=== PATIENT | female | born 1980 | race Caucasian/White ===

== ENCOUNTER → 2016-03-14 | Outpatient (CLI) | payer BC ==
[~2016-03-14] MED LIST: CYM/30 PO; IBUP-1428 PO; LEVO100T7 PO; OXYC-57 PO; PREN1TAB29 PO; RIZA10TA18 SL
[2016-03-14 17:47] LABS: GTGD 50 Grams
[2016-03-16 13:58] LABS: AFP CONCENTRATION 40.1 NG/ML; AFP MULTIPLE OF MEDIAN 1.34; AFPTS GESTATIONAL AGE 18.1 WEEKS; AFPTS INSULIN DEP DIABETIC? NO; AFPTS MATERNAL WT 296 LBS; ALPHA-FETOPROTEIN RACE CAUCASIAN=W; EDD DETERMINED BY ULTRASOUND; ESTRIOL MULTIPLE OF MEDIAN 1.44; HISTORY OF NTD NO; INHIBIN A 125 PG/ML; INHIBIN A MOM 0.97; REPEAT SAMPLE? NO; hCG MULTIPLE OF MEDIAN 1.12
== END | disposition home or self-care (01) ==
LOC: C.LAB1850 15:27
PROVIDERS: ATTEND Obstetrics & Gynecology
DX: Z34.02 Encounter for supervision of normal first pregnancy, second trimester (principal); E03.9 Hypothyroidism, unspecified

== ENCOUNTER → 2016-05-22 | Outpatient (CLI) | payer BC ==
[2016-05-22 12:12] LABS: URINE APPEARANCE CLOUDY (CLEAR); URINE BILIRUBIN NEG (NEG); URINE COLOR DK YELLOW; URINE EPITHELIAL CELL AUTO >30 /lpf (0-5); URINE NITRITE NEG (NEG); URINE PH 6.5 (4.5-7.5); URINE SPECIFIC GRAVITY 1.021 (1.000-1.030); UROBILINOGEN NEG (NEG)
[2016-05-22 12:17] LABS: MANUAL MICROSCOPIC REQUIRED? NO; REVIEW REQ? NO
== END | disposition home or self-care (01) ==
LOC: C.LABSPEC 11:36
PROVIDERS: ATTEND Obstetrics & Gynecology
DX: Z34.03 Encounter for supervision of normal first pregnancy, third trimester (principal)

== ENCOUNTER → 2016-06-12 | Outpatient (CLI) | payer BC ==
[~2016-06-12] MED LIST changes: +BCPILLS PO; +DICY20TA35 PO; +DULO1CAP39 PO; +NITR-5 PO; +RIZA5TAB10 PO; +SIMV20TA2 PO
[2016-06-12 17:53] LABS: URINE APPEARANCE CLEAR (CLEAR); URINE BILIRUBIN NEG (NEG); URINE COLOR DK YELLOW; URINE EPITHELIAL CELL AUTO >30 /lpf (0-5); URINE NITRITE POS (NEG); URINE PH 6.5 (4.5-7.5); URINE SPECIFIC GRAVITY 1.014 (1.000-1.030); UROBILINOGEN NEG (NEG)
[2016-06-12 17:55] LABS: MANUAL MICROSCOPIC REQUIRED? NO; REVIEW REQ? NO
== END | disposition home or self-care (01) ==
LOC: C.LAB1850 17:15
PROVIDERS: ATTEND Obstetrics & Gynecology
DX: E03.9 Hypothyroidism, unspecified (principal); R39.9 Unspecified symptoms and signs involving the genitourinary system

== ENCOUNTER 2016-07-17 16:59 | Observation (INO) | payer BC ==
[~2016-07-17] VITALS: Ht 172.7 cm; Wt 142.0 kg
[~2016-07-17 16:59] MED LIST changes: -BCPILLS PO; -DICY20TA35 PO; -DULO1CAP39 PO; -LEVO100T7 PO; -NITR-5 PO; -RIZA5TAB10 PO; -SIMV20TA2 PO
[2016-07-17] MEDS ORDERED: LEVO100T7 PO (17:22)
[2016-07-17 17:23] VITALS: Ht 172.7 cm; Wt 142.0 kg
[2016-07-17 17:32] LABS: BASO % 0.2 %; BASO ABS # 0.02 K/uL (0-0.2); COMPLETE YES; EOS % 1.3 %; HEMATOCRIT 39.3 % (37-47); IG% 0.4 %; LYMPH % 21.7 %; LYMPH ABS # 2.09 K/uL (1.2-3.4); MEAN CELL VOLUME 95.9 fL (80-100); MEAN CORPUSCULAR HEMOGLOBIN 31.7 pg (25-34); MEAN CORPUSCULAR HGB CONC 33.1 g/dl (32-36); MEAN PLATELET VOLUME 10.8 fL (7.4-10.4); MONO % 8.1 %; NEUT % 68.3 %; PLATELET COUNT 212 K/uL (130-400); WHITE BLOOD COUNT 9.63 K/uL (4.8-10.8)
[2016-07-17 17:50] LABS: CREATININE 0.55 mg/dl (0.60-1.20); POTASSIUM 4.1 mmol/L (3.5-5.1)
[2016-07-17 17:51] LABS: ALB/GLOB RATIO 0.6 (0.9-2)
[2016-07-17] MEDS ORDERED: IV FLUIDS COMPLETED PRN (20:15)
[2016-07-18 05:51] LABS: HEMATOCRIT 37.8 % (37-47); MEAN CELL VOLUME 96.9 fL (80-100); MEAN CORPUSCULAR HEMOGLOBIN 32.3 pg (25-34); MEAN CORPUSCULAR HGB CONC 33.3 g/dl (32-36); MEAN PLATELET VOLUME 10.8 fL (7.4-10.4); PLATELET COUNT 174 K/uL (130-400); WHITE BLOOD COUNT 9.55 K/uL (4.8-10.8)
[2016-07-18 06:25] LABS: BUN/CREATININE RATIO 11.6 (10-20); CALCIUM 9.3 mg/dl (8.5-10.1); CREATININE 0.53 mg/dl (0.60-1.20); POTASSIUM 3.9 mmol/L (3.5-5.1)
[2016-07-18 06:28] LABS: ALB/GLOB RATIO 0.6 (0.9-2)
[2016-07-18 18:17] LABS: PATIENT HEIGHT 172.7 cm
[2016-07-18 18:45] LABS: URINE TOTAL PROTEIN 20.3 mg/dl (0-11.9)
[2016-07-18 18:51] LABS: CREATININE 0.53 mg/dl (0.6-1.2); URINE TOTAL PROTEIN CALC 426.3 mg/24 hr (0-149.1)
--- NOTE | 2016-07-18 19:14 | Discharge Instructions ---
Discharge Instructions Date of Service July 18, 2016. Admission Reason for Admission: Bp Check Discharge Discharge Diagnosis / Problem: pre-eclampsia Discharge Goals Goal(s): Continuing OB care Activity Recommendations Activity Limitations: per Instructions/Follow-up section . Instructions / Follow-Up Instructions / Follow-Up SPECIAL CARE INSTRUCTIONS: Call Doctor if: * Regular contractions every 5 minutes or greater than contractions in one hour. * Bleeding * Water breaks or is leaking * Decreased movement * Fever >100.4 degrees F * Pain not relieved by routine measures or pain medication ordered. Call if severe headache, vision problems or upper abdomen pain FOLLOW UP VISIT: Call the office tomorrow for a BP check Follow-up Visit with: When: Current Hospital Diet Patient's current hospital diet: Clear Liquid Diet Discharge Diet Recommended Diet: Regular Diet Pending Studies Studies pending at discharge: no Medical Emergencies . Who to Call and When: Medical Emergencies: If at any time you feel your situation is an emergency, please call 911 immediately. . Non-Emergent Contact Non-Emergency issues call your: Cash Controller . . "Provider Documentation" section prepared by Rohit Chowdary. . VTE Core Measure Inpt VTE Proph given/why not?: Treatment not indicated
--- NOTE | 2016-07-21 08:38 | DISCHARGE SUMMARY ---
ADMISSION DIAGNOSES: 1. Intrauterine at 36 and 0/7 weeks. 2. Elevated blood pressures with concern for preeclampsia. DISCHARGE DIAGNOSES: 1. Same. 2. Preeclampsia without severe features. HISTORY OF PRESENT ILLNESS: The patient is a 35-year-old white female 1, para 0 with an intrauterine at 36 weeks who presents from the office with elevated blood pressures of 140s/90s. The patient presented to her normal 36-week visit today noting good movement, no leaking of fluid, vaginal bleeding or contractions. The is complicated by diet-controlled diabetes. The patient had an ultrasound on the day of admission revealing an AC in the 35th percentile. She denies headaches, vision changes, nausea, vomiting, right upper quadrant pain. The patient notes lower extremity swelling, but not significantly worse. She is morbidly obese. She notes she has never had blood pressure issues in the past. Blood pressures earlier in the were 120-130/70-80. PAST SHREDDING SPECIALIST HISTORY: As noted above. She notes no abnormal Pap smears or STDs. ALLERGIES: No known drug allergies. MEDICATIONS: Amoxicillin, vitamin B12, Synthroid, Duloxetine, fluticasone, multivitamin and Aurelia. PAST MEDICAL HISTORY: Significant for gestational diabetes, morbid obesity, migraines, depression and hypothyroidism. PAST SURGICAL HISTORY: Back surgery and wisdom teeth removal. SOCIAL HISTORY: The patient denies tobacco, alcohol or drug use. FAMILY HISTORY: Noncontributory. PHYSICAL EXAMINATION: VITAL SIGNS: On admission the patient's initial blood pressure was 172/102. She is dipping trace protein. ABDOMEN: Soft, obese, gravid and nontender. EXTREMITIES: Show +1 pitting edema to the ankles, no clonus and it is difficult to elicit DTRs. CERVIX: Exam is deferred. Tocodynamometer shows none. External monitor shows to be in the 120s with moderate variability, accels to 140s, no decels. ASSESSMENT: This is an intrauterine at 36 weeks with elevated blood pressures and concern for preeclampsia. HOSPITAL COURSE: The patient was admitted. Labs were drawn and they were all normal. She continues to be asymptomatic. Her blood pressures are very labile with values in the 140s/70s to 170s/90s. Had one rare super elevated blood pressure of 200/103. Currently, her diagnosis is gestational hypertension. She does not have evidence either by symptoms or labs of preeclampsia. Her blood sugars have been reasonable. She shows no signs or symptoms of labor, the baby is category 1. The patient was admitted and observed overnight and a 24-hour urine was obtained. Her pressures improved overnight to 130s-140s/80s-90s. She continued to remain asymptomatic. Her repeat set of labs were drawn which were normal. Her 24-hour urine returned revealing 426 mg of protein. Her blood pressures remained significantly better over observation during the day on hospital day #2. She was discharged home with rest. She was scheduled for induction for preeclampsia without severe features on Sunday the . She will be returning to the office on the for another blood pressure check. The signs and symptoms for preeclampsia were clearly discussed with the patient and she expressed understanding.
== END 2016-07-18 19:25 | disposition home or self-care (01) ==
LOC: C.LD 16:59 → C.OPB 16:59 → C.LD 19:49
PROVIDERS: ADMIT Obstetrics & Gynecology; ATTEND Obstetrics & Gynecology
DX: O13.3 Gestational [pregnancy-induced] hypertension without significant proteinuria, third trimester (principal); O14.03 Mild to moderate pre-eclampsia, third trimester; O24.410 Gestational diabetes mellitus in pregnancy, diet controlled; Z87.440 Personal history of urinary (tract) infections; Z83.3 Family history of diabetes mellitus; Z80.6 Family history of leukemia; E66.01 Morbid (severe) obesity due to excess calories

== ENCOUNTER → 2016-07-17 | Outpatient (CLI) | payer BC | END | disposition home or self-care (01) | LOC: C.LABSPEC 17:38 | PROVIDERS: ATTEND Obstetrics & Gynecology | DX: O24.410 Gestational diabetes mellitus in pregnancy, diet controlled (principal) ==

== ENCOUNTER 2016-07-23 19:05 | Inpatient (IN) | payer BC ==
[~2016-07-23] VITALS: Ht 172.7 cm; Wt 141.8 kg
[~2016-07-23 19:05] MED LIST changes: -IBUP-1428 PO; +LEVO100T7 PO; -OXYC-57 PO; -RIZA10TA18 SL
[2016-07-23] MEDS ORDERED: LACTATED RINGER'S 1000ML 1,000 ML IV PRN (20:01)
[2016-07-23 20:25] LABS: BASO % 0.2 %; BASO ABS # 0.02 K/uL (0-0.2); EOS % 1.1 %; HEMATOCRIT 38.3 % (37-47); IG% 0.6 %; LYMPH % 25.1 %; LYMPH ABS # 2.55 K/uL (1.2-3.4); MEAN CELL VOLUME 95.3 fL (80-100); MEAN CORPUSCULAR HEMOGLOBIN 32.3 pg (25-34); MEAN PLATELET VOLUME 10.8 fL (7.4-10.4); MONO % 5.9 %; NEUT % 67.1 %; PLATELET COUNT 188 K/uL (130-400); RED BLOOD COUNT 4.02 M/uL (4.2-5.4); WHITE BLOOD COUNT 10.14 K/uL (4.8-10.8)
[2016-07-23 20:26] LABS: COMPLETE YES; MEAN CORPUSCULAR HGB CONC 33.9 g/dl (32-36)
[2016-07-23 20:51] LABS: ALT/SGPT 18 U/L (12-78); AST/SGOT 21 U/L (15-37); CREATININE 0.59 mg/dl (0.60-1.20); URIC ACID 3.7 mg/dl (2.6-7.2)
[2016-07-23 21:02] LABS: URINE PROTIEN/CREAT RATIO 0.4 (0-0.2); URINE TOTAL PROTEIN 35.6 mg/dl (0-11.9)
[2016-07-23 21:45] VITALS: Ht 172.7 cm; Wt 141.8 kg
[2016-07-24] MEDS ORDERED: LACTATED RINGER'S 1000ML 500 ML IV PRN ×2 (09:07→12:11)
[2016-07-24] MEDS ORDERED: OXYTOCIN 30 UNITS/500ML NSS IV PRN ×2 (09:15→18:00)
[2016-07-24] MEDS: LACTATED RINGER'S 1000ML 1,000 ML IV SCH ×2 (09:31→11:49)
[2016-07-24] MEDS ORDERED: BUPIVACAINE 0.25% 30 ML VIAL ONE (11:05)
[2016-07-24] MEDS ORDERED: FENTANYL 2MCG/ML ROPIV 1.25MG/ML 100ML BAG EPI ONE (11:06)
[2016-07-24] MEDS ORDERED: EpHEDrine SULFATE INJ 50 MG/ML AMP ONE (11:06)
[2016-07-24] MEDS ORDERED: FENTANYL CITRATE INJ 50 MCG/1 ML 2 ML VIAL ONE (11:06)
[2016-07-24] MEDS ORDERED: NALOXONE HCL INJ 1 MG in SODIUM CHLORIDE 0.9% 1000ML 1,000 ML IV PRN (12:11)
[2016-07-24] MEDS ORDERED: NALBUPHINE HCL INJ 10 MG/ML AMP IV PRN (12:15)
[2016-07-24] MEDS ORDERED: FENTANYL 2MCG/ML ROPIV 1.25MG/ML 100ML BAG EPI PRN (12:15)
[2016-07-24] MEDS ORDERED: NALOXONE HCL INJ 0.4 MG/1 ML VIAL/CARP IV PRN (12:15)
[2016-07-24] MEDS ORDERED: DiphenhydrAMINE HCL 50 MG/ML VIAL IV PRN (12:15)
[2016-07-24] MEDS ORDERED: EpHEDrine SULFATE INJ 50 MG/ML AMP IV PRN (12:15)
[2016-07-24] MEDS ORDERED: ACETAMINOPHEN/CODEINE 300/30MG TAB PO PRN (18:00)
[2016-07-24] MEDS ORDERED: LANOLIN OINT EXT PRN ×2 (18:00)
[2016-07-24] MEDS ORDERED: BENZOCAINE 20% AER SPR 82.5 GM CAN EXT PRN (18:00)
[2016-07-24] MEDS ORDERED: ACETAMINOPHEN 325 MG TAB PO PRN (18:00)
[2016-07-24] MEDS ORDERED: HYDROCORTISONE ACETATE 25 MG SUPP PR PRN (18:00)
[2016-07-24] MEDS ORDERED: SUPERCREAM 0.870 % 15GM JAR EXT PRN (18:00)
[2016-07-24] MEDS ORDERED: DIPHTHERIA/TETANUS/PERTUSSIS 0.5 ML SYR/VIAL IM. ONE (18:00)
--- NOTE | 2016-07-24 18:12 | DELIVERY SUMMARY ---
DATE OF OPERATION: 07/24/2016 The patient dilated to complete and pushed to deliver a viable male , Apgars 8 and 9 via over second degree perineal laceration. Shoulders and body were delivered with ease. The was vigorous and crying at . At approximately 30 seconds of life, cord was clamped and infant to maternal abdomen. Cord then doubly clamped and cut. Placenta delivered spontaneously and intact 3-vessel cord. Hemostasis achieved with dilute Pitocin and uterine massage. Laceration repaired in the usual fashion with 3-0 Vicryl. Cervix and sulci intact. EBL 300 mL. Mother and baby stable in recovery. I attest to the content of the Intraoperative Record and any orders documented therein. Any exceptio ns are noted below.
[2016-07-24] MEDS ORDERED: MAGNESIUM SULFATE 4GM / WTR 100ML IV SCH (18:20)
[2016-07-24] MEDS ORDERED: MAGNESIUM SULFATE / WTR 1,000 ML IV ONE (18:30)
[2016-07-24] MEDS: IBUPROFEN 600 MG TAB PO PRN ×2 (18:30→22:46)
[2016-07-24] MEDS: OXYTOCIN INJ 20 UNITS in LACTATED RINGER'S 1000ML 1,000 ML IV SCH (19:08)
[2016-07-24] MEDS: DOCUSATE SODIUM 100 MG CAP PO SCH (21:05)
[2016-07-24] MEDS: DULOXETINE (CYMBALTA) 30 MG CAP PO SCH (22:07)
[2016-07-24] MEDS: ACETAMINOPHEN/CODEINE 300/30MG TAB PO PRN (22:45)
[2016-07-25] MEDS: IBUPROFEN 600 MG TAB PO PRN ×3 (02:25→21:54)
[2016-07-25] MEDS: ACETAMINOPHEN/CODEINE 300/30MG TAB PO PRN (02:26)
[2016-07-25] MEDS: OXYTOCIN INJ 20 UNITS in LACTATED RINGER'S 1000ML 1,000 ML IV SCH (06:10)
[2016-07-25 07:36] LABS: BASO % 0.1 %; BASO ABS # 0.02 K/uL (0-0.2); COMPLETE YES; HEMATOCRIT 38.1 % (37-47); IG% 0.3 %; LYMPH ABS # 2.17 K/uL (1.2-3.4); MEAN CELL VOLUME 96.2 fL (80-100); MEAN CORPUSCULAR HEMOGLOBIN 31.6 pg (25-34); MEAN CORPUSCULAR HGB CONC 32.8 g/dl (32-36); MEAN PLATELET VOLUME 10.6 fL (7.4-10.4); MONO % 6.9 %; NEUT % 75.7 %; PLATELET COUNT 144 K/uL (130-400); RED BLOOD COUNT 3.96 M/uL (4.2-5.4); WHITE BLOOD COUNT 13.59 K/uL (4.8-10.8)
[2016-07-25] MEDS: DOCUSATE SODIUM 100 MG CAP PO SCH ×2 (07:43→19:48)
[2016-07-25] MEDS: LEVOTHYROXINE 100 MCG TAB PO SCH (07:43)
[2016-07-25] MEDS: FEXOFENADINE HCL 180 MG TAB PO SCH (07:43)
[2016-07-25 08:10] LABS: BUN/CREATININE RATIO 16.6 (10-20); CREATININE 0.58 mg/dl (0.60-1.20); POTASSIUM 3.9 mmol/L (3.5-5.1)
[2016-07-25 08:13] LABS: ALB/GLOB RATIO 0.5 (0.9-2)
[2016-07-25 08:29] LABS: CALCIUM 8.6 mg/dl (8.5-10.1)
--- NOTE | 2016-07-25 08:55 | Progress Note ---
Subjective July 25, 2016. Subjective lab review Objective Laboratory Results Last 24 Hours Test 07/24/16 13:10 07/25/16 07:15 Bedside Glucose 82 mg/dl White Blood Count 13.59 K/uL Red Blood Count 3.96 M/uL Hemoglobin 12.5 g/dL Hematocrit 38.1 % Mean Corpuscular Volume 96.2 fL Mean Corpuscular Hemoglobin 31.6 pg Mean Corpuscular Hemoglobin Concent 32.8 g/dl Platelet Count 144 K/uL Mean Platelet Volume 10.6 fL Neutrophils (%) (Auto) 75.7 % Lymphocytes (%) (Auto) 16.0 % Monocytes (%) (Auto) 6.9 % Eosinophils (%) (Auto) 1.0 % Basophils (%) (Auto) 0.1 % Neutrophils # (Auto) 10.28 K/uL Lymphocytes # (Auto) 2.17 K/uL Monocytes # (Auto) 0.94 K/uL Eosinophils # (Auto) 0.14 K/uL Basophils # (Auto) 0.02 K/uL RDW Standard Deviation 49.9 fL RDW Coefficient of Variation 14.1 % Immature Granulocyte % (Auto) 0.3 % Immature Granulocyte # (Auto) 0.04 K/uL Sodium Level 140 mmol/L Potassium Level 3.9 mmol/L Chloride Level 108 mmol/L Carbon Dioxide Level 26 mmol/L Anion Gap 6.0 mmol/L Blood Urea Nitrogen 10 mg/dl Creatinine 0.58 mg/dl Est Creatinine Clear Calc Drug Dose 207.0 ml/min Estimated GFR () 140.4 Estimated GFR (Non- 121.1 BUN/Creatinine Ratio 16.6 Random Glucose 101 mg/dl Calcium Level 8.6 mg/dl Total Bilirubin 0.2 mg/dl Aspartate Amino Transf (AST/SGOT) 22 U/L Alanine Aminotransferase (ALT/SGPT) 16 U/L Alkaline Phosphatase 121 U/L Total Protein 5.6 gm/dl Albumin 1.9 gm/dl Globulin 3.7 gm/dl Albumin/Globulin Ratio 0.5 Assessment and Plan Post- Day#: 1 Continue Routine Care: - [facility] labs this AM are stable - BP stable - will d/c Mg (15 hours given) - xfer to
[2016-07-25 11:15] VITALS: BP 143/84; PULSE 80; TEMP 36.5; O2SAT 100
[2016-07-25 16:00] VITALS: BP 148/87; PULSE 95; TEMP 36.9; O2SAT 97
[2016-07-25 19:40] VITALS: BP 116/77; PULSE 105; TEMP 36.8; O2SAT 97
[2016-07-25] MEDS: DULOXETINE (CYMBALTA) 30 MG CAP PO SCH (21:55)
[2016-07-25 23:35] VITALS: BP_SYST 140; BP_SYST 143; BP_DIAS 79; BP_DIAS 89; PULSE 91; TEMP 36.8; O2SAT 97
--- NOTE | 2016-07-26 06:52 | Discharge Instructions ---
Discharge Instructions Date of Service July 25, 2016. Admission Reason for Admission: Mild Preeclampsia Discharge Discharge Diagnosis / Problem: s/p vaginal delivery Discharge Goals Goal(s): Routine recovery after delivery Medications Continue Dispensed Medications: supercream, dermaplast, tucks, lansinoh Activity Recommendations Activity Limitations: as noted below . Instructions / Follow-Up Instructions / Follow-Up ACTIVITY RECOMMENDATIONS: * Gradual return to full activity over the next 2-3 weeks. * No lifting - nothing heavier than baby over the next 2-3 weeks. * Do not engage in vigorous exercise, sexual activity or sports until cleared by your physician. * Do not drive or operate any motorized equipment until cleared by your physician. * You may shower/bathe daily. MEDICATIONS: For discomfort or pain, you may use Acetaminophen (Tylenol), Ibuprofen (Advil), or Naproxen (Aleve) following the package directions. For constipation you may use Colace following the package directions. BREAST CARE: If you are not breast feeding: * Wear a supportive bra 24 hours a day for one to two weeks. * Avoid stimulating your breasts and nipples as much as possible during the first few weeks after delivery. * When taking a shower, have the warm water hit your back, not breasts. * When your breasts feel full, apply ice packs. Usually three to four times a day helps ease the discomfort. * Take a mild pain medication (Tylenol / Motrin) when you are uncomfortable. If breast feeding: * Use breast milk to lubricate nipples. Lansinoh cream may be used for sore nipples. You do not need to remove cream prior to breast feeding. If using a different brand of cream, check the label for directions regarding removal of cream prior to nursing. * Wear a supportive bra. * If having problems with breasts or breast feeding, call a admissions consultant or your health care provider. EPISIOTOMY CARE: After delivery, if you have an episiotomy (stitches), the following steps will ease discomfort and aid healing. * For the first 24 hours after delivery, place ice packs next to your episiotomy to help reduce swelling. * After the first 24 hour-period, sitz baths, either portable or in the tub, are suggested. A shower with a shower arm sprayed over the episiotomy may be comforting. * Marlen care should be done after each voiding and bowel movement. Squirt warm water from a plastic bottle over the perineum (region of the body between the anus and urinary opening) and pat dry. * Use Dermoplast to ease discomfort. Shake container. Tebbetts directly over the episiotomy. Place a Tucks on a clean sanitary pad next to your episiotomy. SPECIAL CARE INSTRUCTIONS: When you are discharged from the hospital, it is important for you to follow the instructions listed below: * During the first week at home, you should be able to care for yourself and your baby. In addition, the usual light household activities are encouraged. * Limit your activities to the way you feel. Do not try to clean the house or move furniture. Be sensible. * If you actively engage in sports and have done so up until the time of your delivery, you may resume these activities as soon as you feel able. This may take up to one month or even longer. Use good judgment. * Continue to take your vitamins for at least six weeks after the of your baby. * Your diet need not be limited unless you were on a special diet before your delivery. Breast-feeding mothers need around 2500 calories per day and at least 64-80 ounces of fluid per day (8 to 10 glasses). * You should eat foods from the four major food groups. Crash diets or fad diets are to be avoided. Eating lean meats, fresh fruits and vegetables, low-fat dairy products, high fiber foods and a regular exercise program, will help you get back to your pre- weight without putting your health at risk. * Constipation is sometimes a problem after delivery. Take a mild laxative as needed. If breast feeding, Milk of Magnesia is acceptable to use. You may use a suppository or Fleets enema if no episiotomy. * A daily shower or tub bath is suggested. Be sure to thoroughly and gently dry the perineum. * A bloody vaginal discharge will usually continue until around four weeks post . A small amount of bleeding may continue for as long as six weeks. Vaginal discharge changes from the bright red bleeding after delivery to pink then brownish and finally yellowish-pink before becoming white and disappearing. * Bleeding may increase with activity. Your first period may come in 4-8 weeks. If you are breast feeding, your period may be delayed even longer. * [place] (sex) can begin whenever both you and your partner feel comfortable and do not have any form of genital infection. It is recommended that you wait at least six weeks for internal and external healing to occur. If you have questions, please talk to your health care practitioner. A condom should be used to prevent infection and . * Foreplay, gentle intercourse and lubrication is very important the first several times to prevent pain. A water-based lubricant such as K-Y jelly or Astroglide may be used. * If you have RH negative blood and your baby is RH positive, you will receive RHOGAM by injection prior to discharge. The nurse will give you a card to keep with you that has the date and place that you received RHOGAM after delivery. * During your care, you had a Rubella screen done to check for the presence of rubella antibodies in your blood. If your test was negative, you will receive a Rubella vaccine prior to discharge. This vaccine may cause a fever, soreness at the injection site and flu-like symptoms. If these symptoms persist, notify your health care practitioner. is not advised for one month after a Rubella vaccine. * Verbalizes understanding of car seat law as reviewed with patient nursing. * Car Seat hand-out given and reviewed with patient by nursing. * Shaken baby information reviewed with patient by nursing. Call you doctor if: * Heavy bleeding (saturating several pads an hour) or passing clots the size of your fist. * A fever >101 degrees F (38.3 degrees C) on two occasions four hours apart and /or chills. * Unusual pain in the pelvic or vaginal areas. * "Baby Blues" lasting longer than two weeks. If you have any questions or concerns, call your health care practitioner at . FOLLOW UP VISIT: * Please call the office at to schedule a 6 week examination. It is important you keep this appointment. It is important for you to make arrangements for either yearly or twice yearly check-ups thereafter. Current Hospital Diet Patient's current hospital diet: Regular OB Diet Discharge Diet Recommended Diet: Regular Diet Pending Studies Studies pending at discharge: no Medical Emergencies . Who to Call and When: Medical Emergencies: If at any time you feel your situation is an emergency, please call [phone] immediately. . Non-Emergent Contact Non-Emergency issues call your: Enterprise Project Manager Call Non-Emergent contact if: you have a fever, temperature is above 101 . . "Provider Documentation" section prepared by Dinora Green. . VTE Core Measure Inpt VTE Proph given/why not?: Treatment not indicated
--- NOTE | 2016-07-26 06:55 | Progress Note ---
Subjective July 26, 2016. Subjective conversation w/ patient, physical exam, lab review Ambulation: ambulating normally Voiding: no voiding problems Passing Gas: Yes Diet Tolerance: Regular Diet Lochia: Small Feeding Type: Breast Feeding Pain: denies Comment: Patient was seen at the bedside. No acute event overnight. Review of Systems Constitutional: No fever Respiratory: No cough, No shortness of breath Cardiac: No chest pain Breast: No breast lump Abdomen: No nausea, No pain, No vomiting Female : No dysuria, No urinary frequency Denies headache Objective Vital Signs Date Time Temp Pulse Resp B/P Pulse Ox O2 Delivery O2 Flow Rate FiO2 07/25/16 23:35 36.8 91 20 143/89 97 Room Air 140/79 07/25/16 23:35 Room Air 07/25/16 19:40 36.8 105 18 116/77 97 Room Air 07/25/16 16:00 36.9 95 18 148/87 97 Room Air 07/25/16 16:00 97 Room Air 07/25/16 11:15 100 Room Air 07/25/16 11:15 36.5 80 18 143/84 100 Room Air Physical Exam General Appearance: WELL-APPEARING, WD/WN, NO APPARENT DISTRESS Respiratory/Chest: chest non-tender, lungs clear, normal breath sounds, no respiratory distress Cardiovascular: regular rate, rhythm Abdomen: normal bowel sounds, non tender, soft Fundus: Firm, Relation to Umbilicus (about 1-2cm below U) Extremities: non-tender, no pedal edema, no calf tenderness Laboratory Results Last 24 Hours Test 07/25/16 07:15 White Blood Count 13.59 K/uL Red Blood Count 3.96 M/uL Hemoglobin 12.5 g/dL Hematocrit 38.1 % Mean Corpuscular Volume 96.2 fL Mean Corpuscular Hemoglobin 31.6 pg Mean Corpuscular Hemoglobin Concent 32.8 g/dl Platelet Count 144 K/uL Mean Platelet Volume 10.6 fL Neutrophils (%) (Auto) 75.7 % Lymphocytes (%) (Auto) 16.0 % Monocytes (%) (Auto) 6.9 % Eosinophils (%) (Auto) 1.0 % Basophils (%) (Auto) 0.1 % Neutrophils # (Auto) 10.28 K/uL Lymphocytes # (Auto) 2.17 K/uL Monocytes # (Auto) 0.94 K/uL Eosinophils # (Auto) 0.14 K/uL Basophils # (Auto) 0.02 K/uL RDW Standard Deviation 49.9 fL RDW Coefficient of Variation 14.1 % Immature Granulocyte % (Auto) 0.3 % Immature Granulocyte # (Auto) 0.04 K/uL Sodium Level 140 mmol/L Potassium Level 3.9 mmol/L Chloride Level 108 mmol/L Carbon Dioxide Level 26 mmol/L Anion Gap 6.0 mmol/L Blood Urea Nitrogen 10 mg/dl Creatinine 0.58 mg/dl Est Creatinine Clear Calc Drug Dose 207.0 ml/min Estimated GFR () 140.4 Estimated GFR (Non- 121.1 BUN/Creatinine Ratio 16.6 Random Glucose 101 mg/dl Calcium Level 8.6 mg/dl Total Bilirubin 0.2 mg/dl Aspartate Amino Transf (AST/SGOT) 22 U/L Alanine Aminotransferase (ALT/SGPT) 16 U/L Alkaline Phosphatase 121 U/L Total Protein 5.6 gm/dl Albumin 1.9 gm/dl Globulin 3.7 gm/dl Albumin/Globulin Ratio 0.5 Medications Current Inpatient Medications Medications (Trade) Dose Ordered Sig/Geronimo Route Start Time Stop Time Status Last Admin Dose Admin Duloxetine HCl (Cymbalta Cap) 60 mg HS PO 07/24/16 22:00 08/23/16 21:59 07/25/16 21:55 60 MG Levothyroxine Sodium (Synthroid Tab) 100 mcg DAILYBB PO 07/25/16 07:30 08/24/16 07:59 07/25/16 07:43 100 MCG Benzocaine (Dermoplast Aero Spr) 1 appln PRN PRN EXT 07/24/16 18:00 08/23/16 17:59 07/24/16 22:46 165 APPLN Cocaine HCl (Supercream 0.870% Cr) BID PRN EXT 07/24/16 18:00 08/07/16 17:59 Hydrocortisone Acetate (Anusol Hc Supp) 25 mg BID PRN GA 07/24/16 18:00 08/23/16 17:59 Lanolin (Lanolin Oint) PRN PRN EXT 07/24/16 18:00 08/23/16 17:59 Ibuprofen (Motrin Tab) 600 mg Q4H PRN PO 07/24/16 18:00 08/23/16 17:59 07/25/16 21:54 600 MG Acetaminophen (Tylenol Tab) 650 mg Q6H PRN PO 07/24/16 18:00 08/23/16 17:59 07/25/16 09:24 650 MG Acetaminophen/ Codeine Phosphate (Tylenol w/ Codeine #3 Tab) 1 tab Q4H PRN PO 07/24/16 18:00 08/23/16 17:59 Acetaminophen/ Codeine Phosphate (Tylenol w/ Codeine #3 Tab) 2 tab Q4H PRN PO 07/24/16 18:00 08/23/16 17:59 07/25/16 02:26 2 TAB Docusate Sodium (coLACE CAP) 100 mg BID PO 07/24/16 20:00 08/23/16 19:59 07/25/16 19:48 100 MG Fexofenadine HCl (Aurelia Tab) 180 mg QAM PO 07/25/16 08:00 08/24/16 07:59 07/25/16 07:43 180 MG Prenat Multivit/ [place]/Iron/Folic Ac ( Vitamin Tab) 1 tab QAM PO 07/26/16 08:00 08/25/16 07:59 Assessment and Plan Post- Day#: 2 Continue Routine Care: A/P: This is a 35 y/o female, , s/p normal vaginal deliver. She is ambulating and clinically stable to discharge. - Vital signs are reviewed and WNL (Tmax 36.9 ) - Last Hgb 12.5 - Blood type A+, GBS neg, Rubella Immune - No signs of depression. - Routine care - Discussed resting, feeding, pain control, mastitis, control, follow up in 6 weeks and reasons to call sooner, if necessary. - Continue with pain medication as needed, and continue vitamins. - Encourage breast feeding and educate about breast feeding - Patient understands and keen for home. - Plan to discharge home Resident Physician Supervision Note: I interviewed and examined the patient. Discussed with Dr. Green and agree with findings and plan as documented in the note. Any exceptions or clarifications are listed here: BP's are stable, OK for d/c Documented By: Severo Flores
[2016-07-26] MEDS ORDERED: PRENATAL VITAMIN TAB PO SCH (08:00)
[2016-07-26] MEDS: IBUPROFEN 600 MG TAB PO PRN (08:28)
[2016-07-26] MEDS: FEXOFENADINE HCL 180 MG TAB PO SCH (08:28)
[2016-07-26] MEDS: DOCUSATE SODIUM 100 MG CAP PO SCH (08:28)
[2016-07-26] MEDS: LEVOTHYROXINE 100 MCG TAB PO SCH (08:28)
[2016-07-26 08:30] VITALS: BP 163/97; PULSE 96; TEMP 37.1; O2SAT 99
[2016-07-26 11:30] VITALS: BP_DIAS 97; PULSE 96; TEMP 37.1
== END 2016-07-26 11:30 | disposition home or self-care (01) | DRG 775 ==
LOC: C.LD 19:05 → C.OPB 19:05 → C.LD 20:01 → C.OPB 20:01 → C.OBG 07-25 09:57
PROVIDERS: ADMIT Obstetrics & Gynecology; ATTEND Obstetrics & Gynecology
PROC: 0U7C7ZZ Dilation of Cervix, Via Natural or Artificial Opening (ICD-10-PCS; principal; 2016-07-24)
PROC: 0KQM0ZZ Repair Perineum Muscle, Open Approach (ICD-10-PCS; principal; 2016-07-24)
PROC: 10E0XZZ Delivery of Products of Conception, External Approach (ICD-10-PCS; principal; 2016-07-24)
PROC: 3E033VJ Introduction of Other Hormone into Peripheral Vein, Percutaneous Approach (ICD-10-PCS; principal; 2016-07-24)
DX: O14.04 Mild to moderate pre-eclampsia, complicating childbirth (principal); Z68.42 Body mass index [BMI] 45.0-49.9, adult; O70.1 Second degree perineal laceration during delivery; O24.420 Gestational diabetes mellitus in childbirth, diet controlled; O99.344 Other mental disorders complicating childbirth; F32.9 Major depressive disorder, single episode, unspecified; O99.214 Obesity complicating childbirth; E66.01 Morbid (severe) obesity due to excess calories; Z37.0 Single live birth; Z3A.36 36 weeks gestation of pregnancy

== ENCOUNTER → 2016-08-10 | Outpatient (CLI) | payer BC ==
[~2016-08-10] MED LIST changes: +BCPILLS PO; +DICY20TA35 PO; +DULO1CAP39 PO; +NITR-5 PO; +RIZA5TAB10 PO; +SIMV20TA2 PO
== END | disposition home or self-care (01) ==
LOC: C.LAB1850 15:23
PROVIDERS: ATTEND Obstetrics & Gynecology
DX: E03.9 Hypothyroidism, unspecified (principal)

== ENCOUNTER → 2016-09-06 | Outpatient (CLI) | payer BC ==
[~2016-09-06] MED LIST changes: -BCPILLS PO; -DICY20TA35 PO; -DULO1CAP39 PO; -NITR-5 PO; -RIZA5TAB10 PO; -SIMV20TA2 PO
[2016-09-06 17:09] LABS: THYROID STIMULATING HORMONE 1.26 uIu/ml (0.300-4.500)
== END | disposition home or self-care (01) ==
LOC: C.LAB1850 14:43
PROVIDERS: ATTEND Internal Medicine
DX: E03.9 Hypothyroidism, unspecified (principal)

== ENCOUNTER → 2016-09-06 | Outpatient (CLI) | payer BC | END | disposition home or self-care (01) | LOC: C.PAPS 16:50 | PROVIDERS: ATTEND Obstetrics & Gynecology | DX: Z12.4 Encounter for screening for malignant neoplasm of cervix (principal) ==

== ENCOUNTER → 2016-09-16 | Outpatient (CLI) | payer BC ==
[2016-09-16 10:40] LABS: CHOLESTEROL/HDL RATIO 8.9
== END | disposition home or self-care (01) ==
LOC: C.LAB 08:17
PROVIDERS: ATTEND Obstetrics & Gynecology
DX: O24.410 Gestational diabetes mellitus in pregnancy, diet controlled (principal)

== ENCOUNTER 2016-12-24 07:29 | Emergency (ER) | payer BC ==
[~2016-12-24] VITALS: Ht 172.7 cm; Wt 122.9 kg
[2016-12-24 07:34] VITALS: TEMP 36.8; Ht 172.7 cm; Wt 122.9 kg
[2016-12-24] MEDS ORDERED: MoRPHine SULFATE 10 MG/ML CARP/VIAL IV STA (07:48)
[2016-12-24] MEDS ORDERED: ONDANSETRON INJ 2 MG/ML 2 ML VIAL IV STA (07:48)
[2016-12-24] MEDS ORDERED: SODIUM CHLORIDE 0.9% 1000ML 1,000 ML IV STA (07:48)
[2016-12-24] MEDS ORDERED: DICYCLOMINE HCL 10 MG CAP PO ONE (08:00)
[2016-12-24] MEDS ORDERED: BCPILLS PO (08:07)
[2016-12-24] MEDS ORDERED: RIZA5TAB10 PO (08:07)
[2016-12-24] MEDS ORDERED: SIMV20TA2 PO (08:07)
[2016-12-24] MEDS ORDERED: DULO1CAP39 PO (08:07)
[2016-12-24 08:12] LABS: BASO % 0.4 %; BASO ABS # 0.03 K/uL (0-0.2); COMPLETE YES; HEMATOCRIT 44.2 % (37-47); IG% 0.1 %; LYMPH % 20.8 %; LYMPH ABS # 1.64 K/uL (1.2-3.4); MEAN CELL VOLUME 95.3 fL (80-100); MEAN CORPUSCULAR HGB CONC 34.6 g/dl (32-36); MONO % 4.9 %; NEUT % 71.8 %; PLATELET COUNT 255 K/uL (130-400); RED BLOOD COUNT 4.64 M/uL (4.2-5.4); WHITE BLOOD COUNT 7.89 K/uL (4.8-10.8)
[2016-12-24 08:24] LABS: URINE APPEARANCE TURBID (CLEAR); URINE BILIRUBIN NEG (NEG); URINE COLOR DK YELLOW; URINE NITRITE NEG (NEG); URINE PH 5.5 (4.5-7.5); URINE SPECIFIC GRAVITY 1.028 (1.000-1.030); UROBILINOGEN NEG (NEG); ZZUR CULT IF INDIC CLEAN CATCH YES
[2016-12-24 08:39] LABS: ALKALINE PHOSPHATASE 49 U/L (45-117); ALT/SGPT 25 U/L (12-78); BLOOD UREA NITROGEN 11 mg/dl (7-18); BUN/CREATININE RATIO 13.5 (10-20); CALCIUM 9.3 mg/dl (8.5-10.1); CARBON DIOXIDE 22 mmol/L (21-32); CHLORIDE 108 mmol/L (98-107); CREATININE 0.79 mg/dl (0.60-1.20); GLUCOSE 113 mg/dl (70-99); SODIUM 140 mmol/L (136-145)
[2016-12-24 08:40] LABS: MANUAL MICROSCOPIC REQUIRED? NO; REVIEW REQ? YES
[2016-12-24 08:47] LABS: URINE EPITHELIAL CELL AUTO 20-30 /lpf (0-5)
[2016-12-24 09:22] LABS: POTASSIUM 3.7 mmol/L (3.5-5.1)
[2016-12-24 09:27] LABS: AST/SGOT 21 U/L (15-37)
--- NOTE | 2016-12-24 12:28 | DIAGNOSTIC IMAGING REPORT ---
CT ABD/PELVIS IV AND ORAL CONT CLINICAL HISTORY: Lower abdominal pain and bloody diarrhea. COMPARISON STUDY: 11/15/2007 TECHNIQUE: Following the IV administration of 93 mL of Optiray-320, CT scan of the abdomen and pelvis was performed from the lung bases to the proximal femurs. Images are reviewed in the axial, sagittal, and coronal planes. IV contrast was administered without complication. A dose lowering technique was utilized adhering to the principles of ALARA. CT DOSE: 1579.34 mGy.cm FINDINGS: Lower chest: The heart is normal in size and configuration, without pericardial effusion. The lung bases and pleural spaces are clear. Liver: The contrast-enhanced liver is normal in size, contour, and attenuation. There is no intrahepatic biliary ductal dilatation. The hepatic veins and portal veins are patent. Gallbladder: Unremarkable. Spleen: Normal in size and attenuation. Pancreas: Unremarkable. Adrenal glands: Unremarkable. Kidneys: There is symmetric renal cortical enhancement. The kidneys are normal in size without hydronephrosis. Bowel: There are no transition zones indicate bowel obstruction. There is colonic diverticulosis. There are no acute peridiverticular inflammatory changes. The appendix appears normal. There is a suggestion of mild left descending colonic wall thickening, with minimal infiltration the pericolonic fat. This is consistent a colitis. Peritoneum: There is no intraperitoneal free air or abdominal ascites. Vasculature: The abdominal aorta is normal in course and caliber. Adenopathy: None. Pelvic viscera: The bladder, and pelvic viscera are unremarkable. Skeletal structures: No destructive osseous lesions are seen. IMPRESSION: 1. No evidence of bowel obstruction. No evidence of free air 2. Normal appendix 3. Diverticulosis. No evidence of acute diverticulitis 3. Suspected mild descending colonic wall thickening. The findings are consistent with a colitis Electronically signed by: Raul Rosenbaum M.D. 12/24/2016 12:27 PM Dictated Date/Time: 12/24/2016 12:22 PM
[2016-12-24] MEDS ORDERED: OPTIRAY 320 IV PRN (12:30)
[2016-12-24] MEDS ORDERED: NITR-5 PO (12:51)
[2016-12-24] MEDS ORDERED: DICY20TA35 PO (12:51)
--- NOTE | 2016-12-24 12:52 | EMERGENCY ROOM VISIT NOTE ---
History First contact with patient: 07:38 Chief Complaint: ABDOMINAL PAIN Stated Complaint: ABDOMINAL PAIN,BLOOD WHEN DEFACATING Nursing Triage Summary: lower abd pain since sunday and has diarrhea pt now started having blood in her stool today History of Present Illness The patient is a 36 year old female who presents to the Emergency Room with complaints of lower abdominal cramping which started on Sunday. She states yesterday she started with loose bowel movements and now she states there is just blood after she defecates her stool. The patient denies any pain with her bowel movement. She states a bowel movement does relieve some of her cramping. The patient admits to some nausea but denies any vomiting. The patient denies any fever. The patient denies any urinary symptoms of frequency, urgency , dysuria or hematuria. The patient does admit to history of IBS which her symptoms are similar except she never has rectal bleeding. She did have a colonoscopy several years ago when she was diagnosed with the IBS. She does not remember being told that she had diverticulosis. Review of Systems 10 system review was performed and was negative unless stated otherwise history of present illness. Past Medical/Surgical History Medical Problems: (1) Elevated blood pressure affecting in third trimester, antepartum (2) Mild preeclampsia (3) with 36 completed weeks gestation (4) with 36 completed weeks gestation (5) Third trimester at less than 36 weeks Social History Smoking Status: Never Smoker Current/Historical Medications Scheduled Control Pills ( Control Pills), 1 TAB PO DAILY Duloxetine HCl (Cymbalta), 60 MG PO HS Duloxetine HCl (Duloxetine HCl), 1 CAP PO QAM Levothyroxine Sodium (Levothyroxine Sodium), 1 TAB PO DAILY Rizatriptan Benzoate (Maxalt), 5 MG PO UD Simvastatin (Zocor), 20 MG PO QPM Allergies Coded Allergies: No Known Allergies (Unverified , 12/24/16) Physical Exam Vital Signs Date Time Temp Pulse Resp B/P (MAP) Pulse Ox O2 Delivery O2 Flow Rate FiO2 12/24/16 11:50 66 20 139/87 99 Room Air 12/24/16 09:50 65 16 183/92 99 12/24/16 07:34 36.8 84 20 149/92 97 Room Air Physical Exam GENERAL: Obese 36-year-old white female appears in no acute distress. MENTAL Status: Alert and oriented 3. MOUTH: Mucosa is moist NECK: Supple, no lymphadenopathy noted. No carotid bruits noted. LUNGS: Clear auscultation without wheezes rales or rhonchi. CARDIAC: Regular rate and rhythm without murmur. Pulses is full and equal throughout. BACK: No CVA tenderness noted. ABDOMEN: Positive bowel sounds all 4 quadrants. Soft, generalized tenderness to palpation without organomegaly or masses. RECTAL: No external masses noted. Anal stricture tone intact. No palpable internal masses. Stool guaiac was positive. EXTREMITIES: No cyanosis or edema noted. Medical Decision & Procedures ER Provider Diagnostic Interpretation: CT ABD/PELVIS IV AND ORAL CONT CLINICAL HISTORY: Lower abdominal pain and bloody diarrhea. COMPARISON STUDY: 11/15/2007 TECHNIQUE: Following the IV administration of 93 mL of Optiray-320, CT scan of the abdomen and pelvis was performed from the lung bases to the proximal femurs. Images are reviewed in the axial, sagittal, and coronal planes. IV contrast was administered without complication. A dose lowering technique was utilized adhering to the principles of ALARA. CT DOSE: 1579.34 mGy.cm FINDINGS: Lower chest: The heart is normal in size and configuration, without pericardial effusion. The lung bases and pleural spaces are clear. Liver: The contrast-enhanced liver is normal in size, contour, and attenuation. There is no intrahepatic biliary ductal dilatation. The hepatic veins and portal veins are patent. Gallbladder: Unremarkable. Spleen: Normal in size and attenuation. Pancreas: Unremarkable. Adrenal glands: Unremarkable. Kidneys: There is symmetric renal cortical enhancement. The kidneys are normal in size without hydronephrosis. Bowel: There are no transition zones indicate bowel obstruction. There is colonic diverticulosis. There are no acute peridiverticular inflammatory changes. The appendix appears normal. There is a suggestion of mild left descending colonic wall thickening, with minimal infiltration the pericolonic fat. This is consistent a colitis. Peritoneum: There is no intraperitoneal free air or abdominal ascites. Vasculature: The abdominal aorta is normal in course and caliber. Adenopathy: None. Pelvic viscera: The bladder, and pelvic viscera are unremarkable. Skeletal structures: No destructive osseous lesions are seen. IMPRESSION: 1. No evidence of bowel obstruction. No evidence of free air 2. Normal appendix 3. Diverticulosis. No evidence of acute diverticulitis 3. Suspected mild descending colonic wall thickening. The findings are consistent with a colitis Electronically signed by: Raul Rosenbaum M.D. 12/24/2016 12:27 PM Laboratory Results 12/24/16 07:58 Red Blood Count 4.64, Mean Corpuscular Volume 95.3, Mean Corpuscular Hemoglobin 33.0, Mean Corpuscular Hemoglobin Concent 34.6, Mean Platelet Volume 11.0, Neutrophils (%) (Auto) 71.8, Lymphocytes (%) (Auto) 20.8, Monocytes (%) (Auto) 4.9, Eosinophils (%) (Auto) 2.0, Basophils (%) (Auto) 0.4, Neutrophils # (Auto) 5.66, Lymphocytes # (Auto) 1.64, Monocytes # (Auto) 0.39, Eosinophils # (Auto) 0.16, Basophils # (Auto) 0.03 12/24/16 07:58 12/24/16 09:00 Test 12/24/16 07:58 12/24/16 09:00 White Blood Count 7.89 K/uL (4.8-10.8) Red Blood Count 4.64 M/uL (4.2-5.4) Hemoglobin 15.3 g/dL (12.0-16.0) Hematocrit 44.2 % (37-47) Mean Corpuscular Volume 95.3 fL (80-100) Mean Corpuscular Hemoglobin 33.0 pg (25-34) Mean Corpuscular Hemoglobin Concent 34.6 g/dl (32-36) Platelet Count 255 K/uL (130-400) Mean Platelet Volume 11.0 fL (7.4-10.4) Neutrophils (%) (Auto) 71.8 % Lymphocytes (%) (Auto) 20.8 % Monocytes (%) (Auto) 4.9 % Eosinophils (%) (Auto) 2.0 % Basophils (%) (Auto) 0.4 % Neutrophils # (Auto) 5.66 K/uL (1.4-6.5) Lymphocytes # (Auto) 1.64 K/uL (1.2-3.4) Monocytes # (Auto) 0.39 K/uL (0.11-0.59) Eosinophils # (Auto) 0.16 K/uL (0-0.5) Basophils # (Auto) 0.03 K/uL (0-0.2) RDW Standard Deviation 43.0 fL (36.4-46.3) RDW Coefficient of Variation 12.5 % (11.5-14.5) Immature Granulocyte % (Auto) 0.1 % Immature Granulocyte # (Auto) 0.01 K/uL (0.00-0.02) Urine Color DK YELLOW Urine Appearance TURBID (CLEAR) Urine pH 5.5 (4.5-7.5) Urine Specific [place] 1.028 (1.000-1.030) Urine Protein TRACE (NEG) Urine Glucose (UA) NEG (NEG) Urine Ketones NEG (NEG) Urine Occult Blood NEG (NEG) Urine Nitrite NEG (NEG) Urine Bilirubin NEG (NEG) Urine Urobilinogen NEG (NEG) Urine Leukocyte Esterase NEG (NEG) Urine WBC (Auto) 1-5 /hpf (0-5) Urine RBC (Auto) 5-10 /hpf (0-4) Urine Hyaline Casts (Auto) 1-5 /lpf (0-5) Urine Epithelial Cells (Auto) 20-30 /lpf (0-5) Urine Bacteria (Auto) 1+ (NEG) Urine Crystals TALC (NONE PRSENT) Urine Pathogenic Casts /lpf (0) Anion Gap 9.0 mmol/L (3-11) Est Creatinine Clear Calc Drug Dose 138.6 ml/min Estimated GFR () 113.2 Estimated GFR (Non- 97.7 BUN/Creatinine Ratio 13.5 (10-20) Calcium Level 9.3 mg/dl (8.5-10.1) Total Bilirubin 0.4 mg/dl (0.2-1) Alanine Aminotransferase (ALT/SGPT) 25 U/L (12-78) Alkaline Phosphatase 49 U/L (45-117) Total Protein 7.6 gm/dl (6.4-8.2) Albumin 3.3 gm/dl (3.4-5.0) Lipase 112 U/L (73-393) Direct Bilirubin < 0.1 mg/dl (0-0.2) Aspartate Amino Transf (AST/SGOT) 21 U/L (15-37) Medications Administered Medications (Trade) Dose Ordered Sig/Geronimo Route Start Time Stop Time Status Last Admin Dose Admin Sodium Chloride 1,000 ml @ 999 mls/hr Q1H1M STAT IV 12/24/16 07:48 12/24/16 08:48 DC 12/24/16 08:10 999 MLS/HR Ondansetron HCl (Zofran Inj) 4 mg NOW STAT IV 12/24/16 07:48 12/24/16 07:51 DC 12/24/16 08:19 4 MG Morphine Sulfate (MoRPHine SULFATE INJ) 6 mg NOW STAT IV 12/24/16 07:48 12/24/16 07:51 DC 12/24/16 08:18 6 MG Dicyclomine HCl (Bentyl Cap) 20 mg NOW ONCE PO 12/24/16 08:00 12/24/16 08:01 DC 12/24/16 08:13 20 MG ED Course The patient was evaluated. IV access was obtained. The patient was given 1 L normal saline wide-open. She was given Zofran 4 mg IV for nausea and morphine 6 mg IV for pain. CBC and differential, renal profile, LFTs and lipase levels were ordered. Urinalysis was ordered. CT of the abdomen and pelvis with IV and oral contrast was ordered and interpreted by the radiologist as above mild descending colon colitis no evidence of diverticulitis but there was diverticulosis.. Labs are reviewed and were unremarkable. Urinalysis revealed some bacteria and will be sent for culture. She will prophylactically be treated for UTI. The patient was given Macrobid 100 mg by mouth. The patient was reevaluated was feeling much better. She was informed of all findings and discharged home in stable condition. Medical Decision Differential diagnoses include reflux, gastritis, gastroenteritis, pancreatitis , cholelithiasis, cholecystitis, appendicitis, mesenteric ischemia, pyelonephritis, urinary tract infection, renal colic, diverticulitis, shingles, bowel obstruction, intussusception, hernia, ovarian torsion, ruptured ovarian cyst, ectopic , . Impression Primary Impression: Colitis Additional Impressions: IBS (irritable bowel syndrome) UTI (urinary tract infection) Departure Information Dispostion Home / Self-Care Condition GOOD Prescriptions Nitrofurantoin Monohyd Macrocr (Macrobid) 100 Mg Cap 100 MG PO BID for 7 Days, #14 CAP Prov: Aliyah Contreras PA-C 12/24/16 Dicyclomine Hcl (BENTYL) 20 Mg Tab 1 TAB PO TID for 30 Days, #20 TAB Prov: Aliyah Contreras PA-C 12/24/16 Referrals Pro,Gonzalo Ayala M.D. (PCP) Forms Call Back Authorization, HOME CARE DOCUMENTATION FORM, IMPORTANT VISIT INFORMATION Patient Instructions ED Diet [place], ED UTI Cystitis Female, [facility] Additional Instructions Push fluids. Take Macrobid as prescribed. Follow bland diet. Advance diet slowly as tolerated once symptoms have resolved. Take Bentyl as needed for abdominal cramping for your IBS. If you experience any high fevers, uncontrolled nausea vomiting, severe abdominal pain return to ER immediately. Call in 36 hours for urine culture results. Problem Qualifiers Additional Impressions: IBS (irritable bowel syndrome) Irritable bowel syndrome type: unspecified Qualified Codes: K58.9 - Irritable bowel syndrome without diarrhea UTI (urinary tract infection) Urinary tract infection type: acute cystitis Hematuria presence: without hematuria Qualified Codes: N30.00 - Acute cystitis without hematuria
[2016-12-24] MEDS ORDERED: NITROFURANTOIN MONOHYDRATE 100 MG CAP PO ONE (13:00)
[2016-12-24 13:09] VITALS: BP 132/59; PULSE 74; O2SAT 99
== END 2016-12-24 13:10 | disposition home or self-care (01) ==
LOC: C.EDB 07:31
DX: K58.9 Irritable bowel syndrome, unspecified (principal); N39.0 Urinary tract infection, site not specified; Z79.3 Long term (current) use of hormonal contraceptives; Z79.899 Other long term (current) drug therapy; E66.9 Obesity, unspecified; Z68.41 Body mass index [BMI] 40.0-44.9, adult

== ENCOUNTER → 2017-07-18 | Outpatient (CLI) | payer OTHER ==
[~2017-07-18] MED LIST changes: +BCPILLS PO; +DULO1CAP39 PO; -PREN1TAB29 PO; +RIZA5TAB10 PO; +SIMV20TA2 PO
--- NOTE | 2017-07-18 11:53 | DIAGNOSTIC IMAGING REPORT ---
CT SINUSES-MAXILLOFACIAL W/O CLINICAL HISTORY: J01.91 Recurrent acute sinusitis COMPARISON STUDY: 12/07/2009 TECHNIQUE: CT scan of the paranasal sinuses was performed in the axial plane. Coronal reconstructed images were obtained and reviewed. A dose lowering technique was utilized adhering to the principles of ALARA. CT DOSE: 289.26 mGycm FINDINGS: There is bilateral maxilla sinus mucosal thickening with a small of fluid within the right maxillary sinus. There is mild to moderate sphenoid sinus mucosal thickening. The frontal sinuses are clear. The patient is status post a prior functional endoscopic surgery. The created nasomaxillary apertures are patent. There is evidence of prior partial ethmoidectomies. The mastoid air cells are well aerated bilaterally. The middle ear cavities are well aerated. The ethmoid notches are unprotected. The olfactory grooves measure 8 mm in depth bilaterally. The frontal and sphenoid recesses appear patent IMPRESSION: 1. Postsurgical changes are prior functional endoscopic surgery 2. The created nasomaxillary apertures are widely patent bilaterally 3. Maxillary and sphenoid sinus mucosal disease Electronically signed by: Raul Rosenbaum M.D. 07/18/2017 11:52 AM Dictated Date/Time: 07/18/2017 11:48 AM
== END | disposition home or self-care (01) ==
LOC: C.CTS 10:22
PROVIDERS: ATTEND Physician Assistant
DX: J32.0 Chronic maxillary sinusitis (principal); J32.3 Chronic sphenoidal sinusitis

== ENCOUNTER 2020-10-04 15:25 | Inpatient (IN) ==
[2020-10-04] MEDS ORDERED: OXYTOCIN 30 UNITS/500 ML BAG IV PRN ×2 (15:46→17:21)
[2020-10-04] MEDS ORDERED: LACTATED RINGER'S 1,000 ML IV PRN (15:46)
[2020-10-04 16:07] LABS: Hemoglobin 14.6 g/dL (12.0-16.0); Mean Corpuscular Hemoglobin 33.2 pg (25-34); Mean Corpuscular Hgb Conc 34.8 g/dL (32-36); Mean Corpuscular Volume 95.5 fL (80-100); Mean Platelet Volume 10.6 fL (7.4-10.4); Platelet Count 209 K/uL (130-400); RDW Coefficient of Variation 14.3 % (11.5-14.5); RDW Standard Deviation 49.9 fL (36.4-46.3); White Blood Count 12.24 K/uL (4.8-10.8)
[2020-10-04] MEDS ORDERED: ePHEDrine sulfate 50 MG/ML AMP ONE (16:24)
[2020-10-04] MEDS ORDERED: SODIUM CHLORIDE 0.9% INJ 10 ML VIAL ONE (16:24)
[2020-10-04] MEDS ORDERED: fentaNYL 2MCG/ML ROPIVACAINE 1.25MG/ML 100 ML BAG EPI ONE (16:25)
[2020-10-04] MEDS ORDERED: fentaNYL citrate 100 MCG/2 ML VIAL ONE (16:25)
[2020-10-04] MEDS ORDERED: BUPIVACAINE 0.25% 30 ML VIAL ONE (16:25)
[2020-10-04] MEDS ORDERED: NALBUPHINE HCL INJ 10 MG/ML AMP IV PRN (16:32)
[2020-10-04] MEDS ORDERED: NALOXONE HCL 1 MG in SODIUM CHLORIDE 0.9% 1000ML 1,000 ML IV PRN (16:32)
[2020-10-04] MEDS ORDERED: ONDANSETRON INJ 2 MG/ML 2 ML VIAL IV PRN (16:32)
[2020-10-04] MEDS ORDERED: diphenhydrAMINE 50 MG/ML VIAL IV PRN (16:32)
[2020-10-04] MEDS ORDERED: ePHEDrine sulfate 50 MG/ML AMP IV PRN (16:32)
[2020-10-04] MEDS ORDERED: fentaNYL 2MCG/ML ROPIVACAINE 1.25MG/ML 100 ML BAG EPI PRN (16:32)
[2020-10-04] MEDS ORDERED: NALOXONE HCL 0.4 MG/1 ML VIAL/CARP IV PRN (16:32)
--- NOTE | 2020-10-04 16:34 | Anesthesiology Consultation ---
Date of Service October 04, 2020 Assessment & Plan (1) Encounter for pre-operative examination: Chart Review Chart Review: Patient NOT seen in Pre Admission Testing and Acceptable Risk for Labor Epidural Consults Requested none History Height/Weight Height: 5 ft 8 in Weight: 147.418 kg Allergies Allergy/AdvReac Type Severity Reaction Status Date / Time No Known Allergies Allergy Verified 09/23/20 14:09 Medications Home Medications Medication Instructions Recorded Confirmed Last Taken Lactobacillus 1 cap PO .TAKE 1 CAPSULE Daily cap 09/03/18 10/04/20 10/04/20 08:00 acidophilus-Bifidobac.animalis 31 billion cell capsule cholecalciferol (vitamin D3) 125 PO .once daily with heav #30 cap 09/03/18 09/23/20 10/04/20 08:00 mcg (5,000 unit) capsule cyanocobalamin (vitamin B-12) 1 PO .Take 1 tablet daily tab 09/03/18 09/23/20 10/04/20 08:00 1,000 mcg tablet omega-3 fatty acids 1,000 mg 1,000 mg PO DAILY 03/06/19 09/23/20 Unknown capsule (Fish Oil Concentrate) loratadine 10 mg tablet 10 mg PO DAILY 12/31/19 10/04/20 10/04/20 08:00 magnesium 30 mg tablet 30 mg PO DAILY 12/31/19 09/23/20 Unknown buspirone 7.5 mg tablet 7.5 mg PO BID 02/04/20 10/04/20 10/04/20 08:00 prenat.vits,faiza,qdq-vwyk-rgofo 1 tab PO DAILY 02/04/20 09/23/20 Unknown levothyroxine 137 mcg tablet 137 mcg PO DAILY #90 tab 04/06/20 10/04/20 10/04/20 06:30 acetone (urine) test (Ketone Urine #50 ea 04/12/20 09/23/20 Unknown Test) blood sugar diagnostic (Accu-Chek #150 ea 04/12/20 09/23/20 Unknown Guide test strips) blood-glucose meter (Accu-Chek #1 ea 04/12/20 09/23/20 Unknown Guide Glucose Meter) lancets (Accu-Chek Fastclix Lancet #102 ea 04/12/20 09/23/20 Unknown Drum) pen needle, diabetic 32 gauge x #100 ea 05/20/20 09/23/20 Unknown " (BD Ultra-Fine Chichi Pen Needle) duloxetine 60 mg capsule,delayed See Rx Instructions PO DAILY cap 06/07/20 09/23/20 10/04/20 08:00 release insulin NPH isoph U-100 human 100 25 unit SUBCUT QPM 10/04/20 10/04/20 10/03/20 21:00 unit/mL (3 mL) subcutaneous pen (Novolin N Flexpen) Past Medical History Medical History Chronic headaches Depression with anxiety Vimal's thyroiditis Hypercalcemia Hyperlipidemia Hyperparathyroidism Hypothyroidism Mild preeclampsia Vitamin D deficiency Exercise / Class Metabolic Activity II 4-5 Yardwork/Stairs/Walk up hill Past Family History Family History Mother Diabetes Sinusitis Thyroid disease Hyperlipidemia Brother Diabetes Hypertension Thyroid disease Obesity Father Sinusitis Obesity Denies family history of Colon cancer Ovarian cancer Prostate cancer Myocardial infarction Breast cancer Past Surgical History Surgical History History of back surgery S/P nasal septoplasty S/P sinus surgery Past Anesthesia History No Hx of Anesthesia Complications and No Family Hx of Anesthesia Complications History of PONV No Hx of PONV and No Hx of Motion Sickness Social History Smoking Status: Never smoker Do You Dip or Chew Tobacco: No Hx Alcohol Use: No Hx Substance Use: No Physical Exam Vital Signs Last Vital Signs Temp 36.5 C 10/04/20 15:57 Pulse 84 10/04/20 16:46 Resp 24 10/04/20 15:57 BP 184/109 H 10/04/20 16:30 Pulse Ox 96 10/04/20 16:46 Testing Laboratory Results 10/04/20 15:54
--- NOTE | 2020-10-04 16:53 | Communication Note ---
Date of Service: October 04, 2020 sat patient upright to do epidural. pt prepped and draped. she stated she had severe rectal pressure. pt placed supine and nurse checked pt and stated she was complete. ob attending notified. procedure aborted
[2020-10-04] MEDS ORDERED: LIDOCAINE/EPINEPHRINE 1% 20 ML VIAL ONE (16:56)
[2020-10-04] MEDS ORDERED: LIDOCAINE 1% LOCAL 20 ML VIAL ONE (16:58)
[2020-10-04] MEDS ORDERED: DIPHTHERIA/TETANUS/PERTUSSIS 0.5 ML SYR/VIAL IM ONE (17:21)
[2020-10-04] MEDS ORDERED: HYDROCORTISONE ACETATE 25 MG SUPP PR PRN (17:21)
[2020-10-04] MEDS ORDERED: BENZOCAINE 20% AER SPR 82.5 GM CAN EXT PRN (17:21)
[2020-10-04] MEDS ORDERED: bisacodyL 10 MG SUPP PR PRN (17:21)
[2020-10-04] MEDS ORDERED: oxyCODONE/ACETAMINOPHEN 5mg/325mg TAB PO PRN (17:21)
[2020-10-04] MEDS ORDERED: ACETAMINOPHEN 325 MG TAB PO PRN (17:21)
[2020-10-04] MEDS ORDERED: SUPERCREAM 0.870% 15 GM JAR EXT PRN (17:21)
[2020-10-04] MEDS ORDERED: IBUPROFEN 600 MG TAB PO ONE (17:30)
--- NOTE | 2020-10-04 18:37 | Delivery Summary ---
Vaginal Delivery Summary Date of Service October 04, 2020 Vaginal Delivery Summary and 1st Degree LAC The patient is a 40-year-old 2 para 1-0-0-1 white female EDC of October 10, 2020 presented with a history of irregular contractions starting at approximately 10 AM. Contractions got more intense and she arrived in labor and delivery at 4 cm dilated. Within an hour of arrival, membranes ruptured spontaneously and she had the urge to push. The was noted to be and she pushed effectively over intact perineum for delivery of a viable male . The infant was placed on the mother's abdomen for further attention and drying. He was vigorous and moving all 4 limbs. The placenta was expressed intact with a three-vessel cord. A first-degree perineal laceration was repaired with 3-0 chromic in the usual fashion. 1% Xylocaine was used to anesthetize the area prior to repairing the tear. bleeding was controlled with dilute Pitocin. Estimated blood loss was 150 cc. Mother and infant were doing well after delivery. MNP Vaginal Delivery Charge Vaginal Delivery Codes: 07900 global code for the antepartum, delivery, and post- Delivery Type Details: and 1st Degree LAC
[2020-10-04] MEDS ORDERED: LABETALOL HCL 100 MG TAB ONE (20:06)
[2020-10-04] MEDS: DOCUSATE SODIUM 100 MG CAP PO SCH (20:28)
[2020-10-04] MEDS: busPIRone 7.5 MG TAB PO SCH (20:28)
[2020-10-04] MEDS: LABETALOL HCL 200 MG TAB PO SCH (20:28)
[2020-10-04] MEDS: IBUPROFEN 600 MG TAB PO PRN (22:32)
[2020-10-05] MEDS: IBUPROFEN 600 MG TAB PO PRN ×3 (03:52→13:01)
[2020-10-05] MEDS: LEVOTHYROXINE SODIUM 137 MCG TABLET PO SCH (05:51)
[2020-10-05 06:25] LABS: Hematocrit (blood only) 35.8 % (37-47); Hemoglobin 11.9 g/dL (12.0-16.0); Mean Corpuscular Hemoglobin 32.7 pg (25-34); Mean Corpuscular Hgb Conc 33.2 g/dL (32-36); Mean Corpuscular Volume 98.4 fL (80-100); Mean Platelet Volume 10.7 fL (7.4-10.4); Platelet Count 175 K/uL (130-400); RDW Coefficient of Variation 14.7 % (11.5-14.5); RDW Standard Deviation 52.8 fL (36.4-46.3); Red Blood Count 3.64 M/uL (4.2-5.4); White Blood Count 13.37 K/uL (4.8-10.8)
--- NOTE | 2020-10-05 07:01 | Obstetrical Progress Note ---
Date of Service <Sally Siddiqi DO - Last Filed: 10/05/20 07:56> October 05, 2020 Assessment & Plan <Sally Siddiqi DO - Last Filed: 10/05/20 07:56> (1) Encounter for care and examination after delivery: 30yo Female day 1, stable -Continue routine post care -vital signs reviewed and WNL (Tmax 36.8) -Blood Type A+, GBS -Encourage ambulation, monitor and control pain with Motrin, Percocet PRN, resume regular diet, monitor lochia -continue formula feeding -hemoglobin 14.6-->11.9 -on labetalol to control blood pressure Day #:: 1 <Karime Cabrera MD, FACOG - Last Filed: 10/05/20 08:32> (1) Encounter for care and examination after delivery: Subjective <Sally Siddiqi - Last Filed: 10/05/20 07:56> Ambulation: ambulating normally Voiding: no voiding problems Passing Gas:: No Diet Tolerance:: regular diet Lochia:: Small Feeding Type:: bottle feeding Current Pain Level(1-10): 5 (pain well controlled on medication) Review of Systems Some dysuria due to stitches negative fever chills headache dizziness nausea vomiting SOB palpitations Physical Exam <Sally Siddiqi DO - Last Filed: 10/05/20 07:56> General: Alert, oriented. No acute distress. Cardiac: Regular rate and rhythm, no murmurs/rubs/gallops. Respiratory: Clear to auscultation bilaterally a/p, no wheezes/rales/rhonchi. No increased work of breathing. Symmetrical chest rise. No respiratory distress. Abdomen: Soft, nontender, nondistended. Bowel sounds present. Uterus: Uterine fundus firm, palpable 1 cm below umbilicus. Lower Extremities: No lower extremity edema or swelling. No deep calf pain. Kirk's negative bilaterally.. Results & Data ([facility]) <Sally Siddiqi - Last Filed: 10/05/20 07:56> Vital Signs (Past 12 Hours) Vital Signs Temp Pulse Pulse Resp BP BP 10/05/20 03:45 36.8 C 93 H 18 161/83 H 10/04/20 23:15 36.9 C 87 18 134/81 10/04/20 20:40 37.2 C 89 18 192/84 H 10/04/20 20:00 36.8 C 18 10/04/20 19:58 104 H 152/87 H 10/04/20 19:43 93 H 155/98 H 10/04/20 19:28 90 18 140/94 10/04/20 19:13 80 169/79 H 10/04/20 19:05 36.8 C 18 Laboratory Results 10/05/20 10/04/20 10/04/20 Range/Units 05:50 Unknown Unknown WBC 13.37 H (4.8-10.8) K/uL RBC 3.64 L (4.2-5.4) M/uL Hgb 11.9 L (12.0-16.0) g/dL Hct 35.8 L (37-47) % MCV 98.4 (80-100) fL MCH 32.7 (25-34) pg MCHC 33.2 (32-36) g/dL RDW Std Deviation 52.8 H (36.4-46.3) fL RDW Coeff of Beto 14.7 H (11.5-14.5) % Plt Count 175 (130-400) K/uL MPV 10.7 H (7.4-10.4) fL COVID-19 Eval Order Covid19 [facility] SARS-CoV-2, RNA, NAAT NEGATIVE (NEGATIVE) 10/04/20 Range/Units 15:54 WBC 12.24 H (4.8-10.8) K/uL RBC 4.40 (4.2-5.4) M/uL Hgb 14.6 (12.0-16.0) g/dL Hct 42.0 (37-47) % MCV 95.5 (80-100) fL MCH 33.2 (25-34) pg MCHC 34.8 (32-36) g/dL RDW Std Deviation 49.9 H (36.4-46.3) fL RDW Coeff of Beto 14.3 (11.5-14.5) % Plt Count 209 (130-400) K/uL MPV 10.6 H (7.4-10.4) fL COVID-19 Eval Order SARS-CoV-2, RNA, NAAT (NEGATIVE) Medications Administered Current Inpatient Medications Acetaminophen (Acetaminophen 325 Mg Tab) 650 mg PO Q6H PRN PRN Reason: Pain/ESCOBEDO/Fever Stop: 11/03/20 17:20 Benzocaine (Benzocaine 20% Aer Spr 82.5 Gm Can) 1 appln EXT PRN PRN PRN Reason: Perineal Discomfort Stop: 11/03/20 17:20 Last Admin: 10/04/20 20:09 Dose: 1 appln Documented by: Bisacodyl (Bisacodyl 5 Mg Tabec) 5 mg PO 1999 [facility] Stop: 10/05/20 20:01 Bisacodyl (Bisacodyl 10 Mg Supp) 10 mg MO DAILY PRN PRN Reason: No BM on 2nd post- day Stop: 11/03/20 17:20 Buspirone HCl (Buspirone 7.5 Mg Tab) 7.5 mg PO BID [facility] Stop: 11/03/20 20:59 Last Admin: 10/04/20 20:28 Dose: 7.5 mg Documented by: Cocaine HCl (Supercream 0.870% 15 Gm Jar) 1 gm EXT BID PRN PRN Reason: Hemorrhoidal Inflammation Stop: 10/18/20 17:20 Docusate Sodium (Docusate Sodium 100 Mg Cap) 100 mg PO DAILY@ [facility] Stop: 11/03/20 20:59 Last Admin: 10/04/20 20:28 Dose: 100 mg Documented by: Duloxetine HCl (Duloxetine Hcl 60 Mg Cap) 60 mg PO DAILY [facility] Stop: 11/04/20 08:59 Hydrocortisone (Hydrocortisone Acetate 25 Mg Supp) 25 mg MO BID PRN PRN Reason: Hemorrhoidal Inflammation Stop: 11/03/20 17:20 Oxytocin (Pitocin) 30 units in 500 mls @ 333.333 mls/hr IV .Q1H30M PRN; Protocol PRN Reason: Bleeding Control Stop: 11/03/20 15:45 Oxytocin (Pitocin) 30 units in 500 mls @ 333.333 mls/hr IV .Q1H30M PRN; Protocol PRN Reason: Bleeding Control Stop: 11/03/20 17:20 Ibuprofen (Ibuprofen 600 Mg Tab) 600 mg PO Q4H PRN PRN Reason: Pain/ESCOBEDO/Cramping/Fever Stop: 11/03/20 17:20 Last Admin: 10/05/20 03:52 Dose: 600 mg Documented by: Labetalol HCl (Labetalol Hcl 200 Mg Tab) 200 mg PO BID [facility] Stop: 11/03/20 20:59 Last Admin: 10/04/20 20:28 Dose: Not Given Documented by: Levothyroxine Sodium (Levothyroxine Sodium 137 Mcg Tablet) 137 mcg PO DAILYBB [facility] Stop: 11/04/20 06:29 Last Admin: 10/05/20 05:51 Dose: 137 mcg Documented by: Oxycodone/Acetaminophen (Oxycodone/Acetaminophen 5mg/325mg Tab) 1 tab PO Q4H PRN PRN Reason: Pain not relieved by... Stop: 10/18/20 17:20 Prenat Multivit/Pulley Worker/Iron/Folic Ac ( Vitamin 1 Tab) 1 tab PO DAILY@08 [facility] Stop: 11/04/20 07:59 <Karime Cabrera MD, FACOG - Last Filed: 10/05/20 08:32> Co-Signing Physician Notes Resident Physician Supervision Note: I interviewed and examined the patient. Discussed with Dr. Siddiqi and agree with findings and plan as documented in the note. Any exceptions or clarifications are listed here: [None] Documented By: Karime Cabrera MD, FACOG Resident Activity Tracking <Sally Siddiqi DO - Last Filed: 10/05/20 07:56> Resident Involvement: Resident Care Provided Care Provided: OB Delivery
[2020-10-05] MEDS: PRENATAL VITAMIN 1 TAB PO SCH (07:47)
[2020-10-05] MEDS: DOCUSATE SODIUM 100 MG CAP PO SCH ×2 (07:47→20:34)
[2020-10-05] MEDS: LABETALOL HCL 200 MG TAB PO SCH ×2 (07:48→20:35)
[2020-10-05] MEDS: busPIRone 7.5 MG TAB PO SCH ×2 (07:48→20:34)
[2020-10-05] MEDS: DULoxetine HCL 60 MG CAP PO SCH (07:48)
[2020-10-05 09:38] LABS: Creatinine Clr Calc Pharmacy 180.3 ml/min; Est GFR (African American) 130.5 ml/min; Est GFR (Non-African American) 112.6 ml/min
--- NOTE | 2020-10-05 10:13 | Obstetrical Progress Note ---
Date of Service October 05, 2020 Assessment & Plan (1) (spontaneous vaginal delivery): (2) hypertension: Patient has no s/s of pet. Has a very minimally abnl ast, pressures have responded to labetollol. Plan to monitor closely. BP q 3 hrs. Recheck BP prior to evening dose. Repeat labs in 6 hours. Advised patient if anything changes to let us know right away. Subjective Patient resting comfortably in bed. She notes a mild dee that she feels is more sinus related. no n/v, no ruq pain, no increase in her swelling. Pateints blood pressures raised significantly after precipitious labor. Dr. Landers started labetolol 200mg bid and she had a dose this am. pressure before dose was "normal". Now pressure is 96/63--asymptomatic. Labs were not drawn last night and got this am. Only abnl is ast of 45 (top nl 37). Physical Exam Constitutional WD/WN, vitals as above Cardiovascular Extremities: + edema (trace); no calf tenderness Gastrointestinal (Abdomen) soft, nt, ff, no ruq pain Neurologic dtrs 1/2, no clonus Results & Data ([facility]) Vital Signs (Past 12 Hours) Vital Signs Temp Pulse Resp BP 10/05/20 03:45 36.8 C 93 H 18 161/83 H 10/04/20 23:15 36.9 C 87 18 134/81
[2020-10-05] MEDS ORDERED: bisacodyL 5 MG TABEC PO SCH (20:00)
[2020-10-05 21:21] LABS: Hematocrit (blood only) 33.7 % (37-47); Mean Corpuscular Hemoglobin 32.4 pg (25-34); Mean Corpuscular Hgb Conc 32.6 g/dL (32-36); Mean Corpuscular Volume 99.4 fL (80-100); Mean Platelet Volume 10.4 fL (7.4-10.4); Platelet Count 193 K/uL (130-400); RDW Coefficient of Variation 15.1 % (11.5-14.5); RDW Standard Deviation 54.1 fL (36.4-46.3); Red Blood Count 3.39 M/uL (4.2-5.4); White Blood Count 12.01 K/uL (4.8-10.8)
[2020-10-05 21:43] LABS: BUN Creatinine Ratio 18.5 (10-20); Calcium 8.1 mg/dl (8.5-10.1); Creatinine Clr Calc Pharmacy 162.7 ml/min; Est GFR (African American) 123.1 ml/min; Est GFR (Non-African American) 106.2 ml/min; Potassium 3.8 mmol/L (3.5-5.1)
[2020-10-05 21:46] LABS: Albumin Globulin Ratio 0.5 (0.9-2); Bilirubin,Total 0.1 mg/dl (0.2-1); Globulin 3.9 gm/dl (2.5-4.0); Total Protein 5.9 gm/dl (6.4-8.2)
[2020-10-06] MEDS: IBUPROFEN 600 MG TAB PO PRN ×3 (00:50→11:31)
[2020-10-06] MEDS: LEVOTHYROXINE SODIUM 137 MCG TABLET PO SCH (06:03)
[2020-10-06 06:40] LABS: Hematocrit (blood only) 32.5 % (37-47); Hemoglobin 10.5 g/dL (12.0-16.0)
--- NOTE | 2020-10-06 07:07 | Obstetrical Progress Note ---
Date of Service <Sally Siddiqi DO - Last Filed: 10/06/20 07:10> October 06, 2020 Assessment & Plan <Sally Siddiqi - Last Filed: 10/06/20 07:10> (1) Encounter for care and examination after delivery: 30yo Female day 2, stable -Continue routine post care -vital signs reviewed and WNL (Tmax 36.8) -Blood Type A+, GBS- -Encourage ambulation, monitor and control pain with Motrin, Percocet PRN, resume regular diet, monitor lochia -continue formula feeding -hemoglobin 11.9-->10.5 -on labetalol to control blood pressure -discussed discharge with patient, will be d/c on labetalol 200mg BID with follow-up Sunday in outpatient OBGYN for BP check -patient educated on pre-eclampsia Day #:: 2 <Rosie Murrell MD, FACOG - Last Filed: 10/06/20 08:10> (1) Encounter for care and examination after delivery: Subjective <Sally Siddiqi - Last Filed: 10/06/20 07:10> Ambulation: ambulating normally Voiding: no voiding problems Passing Gas:: Yes Diet Tolerance:: regular diet Lochia:: Small Feeding Type:: bottle feeding Current Pain Level(1-10): 2 (well controlled on medication) Review of Systems Denies fever, chills, sweats Denies shortness of breath, difficulty breathing, chest pain, palpitations, chest pressure. Denies breast pain. Denies dysuria. Denies headache or changes in vision. Physical Exam <Sally Siddiqi - Last Filed: 10/06/20 07:10> General: Alert, oriented. No acute distress. Cardiac: Regular rate and rhythm, no murmurs/rubs/gallops. Respiratory: Clear to auscultation bilaterally a/p, no wheezes/rales/rhonchi. No increased work of breathing. Symmetrical chest rise. No respiratory distress. Abdomen: Soft, nontender, nondistended. Bowel sounds present. Uterus: Uterine fundus firm, palpable 1 cm below umbilicus. Lower Extremities: No lower extremity edema or swelling. No deep calf pain. Kirk's negative bilaterally.. Results & Data ([facility]) <Sally Siddiqi, DO - Last Filed: 10/06/20 07:10> Vital Signs (Past 12 Hours) Vital Signs Temp Pulse Resp BP BP Pulse Ox 10/06/20 03:15 75 149/86 H 144/87 H 10/06/20 00:40 36.8 C 88 20 117/75 97 10/05/20 22:53 36.9 C 89 16 117/72 99 10/05/20 20:30 100 H 18 138/82 98 Laboratory Results 10/06/20 10/05/20 10/05/20 Range/Units 06:20 21:04 21:03 WBC 12.01 H (4.8-10.8) K/uL RBC 3.39 L (4.2-5.4) M/uL Hgb 10.5 L 11.0 L (12.0-16.0) g/dL Hct 32.5 L 33.7 L (37-47) % MCV 99.4 (80-100) fL MCH 32.4 (25-34) pg MCHC 32.6 (32-36) g/dL RDW Std Deviation 54.1 H (36.4-46.3) fL RDW Coeff of Beto 15.1 H (11.5-14.5) % Plt Count 193 (130-400) K/uL MPV 10.4 (7.4-10.4) fL Sodium 140 (136-145) mmol/L Potassium 3.8 (3.5-5.1) mmol/L Chloride 110 H (98-107) mmol/L Carbon Dioxide 24 (21-32) mmol/L Anion Gap 6.0 (3-11) BUN 13 (7-18) mg/dl Creatinine 0.72 (0.6-1.2) mg/dl Est Cr Clr Drug Dosing 162.7 ml/min Est GFR ( Amer) 123.1 ml/min Est GFR (Non-Af Amer) 106.2 ml/min BUN/Creatinine Ratio 18.5 (10-20) Glucose 110 H (70-99) mg/dl Calcium 8.1 L (8.5-10.1) mg/dl Total Bilirubin 0.1 L (0.2-1) mg/dl AST 46 H (15-37) U/L ALT 26 (12-78) U/L Alkaline Phosphatase 113 (45-117) U/L Total Protein 5.9 L (6.4-8.2) gm/dl Albumin 2.0 L (3.4-5.0) gm/dl Globulin 3.9 (2.5-4.0) gm/dl Albumin/Globulin Ratio 0.5 L (0.9-2) 10/05/20 Range/Units 08:36 WBC (4.8-10.8) K/uL RBC (4.2-5.4) M/uL Hgb (12.0-16.0) g/dL Hct (37-47) % MCV (80-100) fL MCH (25-34) pg MCHC (32-36) g/dL RDW Std Deviation (36.4-46.3) fL RDW Coeff of Beto (11.5-14.5) % Plt Count (130-400) K/uL MPV (7.4-10.4) fL Sodium (136-145) mmol/L Potassium (3.5-5.1) mmol/L Chloride (98-107) mmol/L Carbon Dioxide (21-32) mmol/L Anion Gap (3-11) BUN (7-18) mg/dl Creatinine 0.65 (0.6-1.2) mg/dl Est Cr Clr Drug Dosing 180.3 ml/min Est GFR ( Amer) 130.5 ml/min Est GFR (Non-Af Amer) 112.6 ml/min BUN/Creatinine Ratio (10-20) Glucose (70-99) mg/dl Calcium (8.5-10.1) mg/dl Total Bilirubin (0.2-1) mg/dl AST 45 H (15-37) U/L ALT 25 (12-78) U/L Alkaline Phosphatase (45-117) U/L Total Protein (6.4-8.2) gm/dl Albumin (3.4-5.0) gm/dl Globulin (2.5-4.0) gm/dl Albumin/Globulin Ratio (0.9-2) Medications Administered Current Inpatient Medications Acetaminophen (Acetaminophen 325 Mg Tab) 650 mg PO Q6H PRN PRN Reason: Pain/ESCOBEDO/Fever Stop: 11/03/20 17:20 Benzocaine (Benzocaine 20% Aer Spr 82.5 Gm Can) 1 appln EXT PRN PRN PRN Reason: Perineal Discomfort Stop: 11/03/20 17:20 Last Admin: 10/04/20 20:09 Dose: 1 appln Documented by: Bisacodyl (Bisacodyl 10 Mg Supp) 10 mg NV DAILY PRN PRN Reason: No BM on 2nd post- day Stop: 11/03/20 17:20 Buspirone HCl (Buspirone 7.5 Mg Tab) 7.5 mg PO BID [facility] Stop: 11/03/20 20:59 Last Admin: 10/05/20 20:34 Dose: 7.5 mg Documented by: Cocaine HCl (Supercream 0.870% 15 Gm Jar) 1 gm EXT BID PRN PRN Reason: Hemorrhoidal Inflammation Stop: 10/18/20 17:20 Docusate Sodium (Docusate Sodium 100 Mg Cap) 100 mg PO DAILY@ [facility] Stop: 11/03/20 20:59 Last Admin: 10/05/20 20:34 Dose: 100 mg Documented by: Duloxetine HCl (Duloxetine Hcl 60 Mg Cap) 60 mg PO DAILY [facility] Stop: 11/04/20 08:59 Last Admin: 10/05/20 07:48 Dose: 60 mg Documented by: Hydrocortisone (Hydrocortisone Acetate 25 Mg Supp) 25 mg NV BID PRN PRN Reason: Hemorrhoidal Inflammation Stop: 11/03/20 17:20 Oxytocin (Pitocin) 30 units in 500 mls @ 333.333 mls/hr IV .Q1H30M PRN; Protocol PRN Reason: Bleeding Control Stop: 11/03/20 15:45 Oxytocin (Pitocin) 30 units in 500 mls @ 333.333 mls/hr IV .Q1H30M PRN; Protocol PRN Reason: Bleeding Control Stop: 11/03/20 17:20 Ibuprofen (Ibuprofen 600 Mg Tab) 600 mg PO Q4H PRN PRN Reason: Pain/ESCOBEDO/Cramping/Fever Stop: 11/03/20 17:20 Last Admin: 10/06/20 06:03 Dose: 600 mg Documented by: Labetalol HCl (Labetalol Hcl 200 Mg Tab) 200 mg PO BID [facility] Stop: 11/03/20 20:59 Last Admin: 10/05/20 20:35 Dose: 200 mg Documented by: Levothyroxine Sodium (Levothyroxine Sodium 137 Mcg Tablet) 137 mcg PO DAILYBB [facility] Stop: 11/04/20 06:29 Last Admin: 10/06/20 06:03 Dose: 137 mcg Documented by: Oxycodone/Acetaminophen (Oxycodone/Acetaminophen 5mg/325mg Tab) 1 tab PO Q4H PRN PRN Reason: Pain not relieved by... Stop: 10/18/20 17:20 Prenat Multivit/Wallace/Iron/Folic Ac ( Vitamin 1 Tab) 1 tab PO DAILY@08 [facility] Stop: 11/04/20 07:59 Last Admin: 10/05/20 07:47 Dose: 1 tab Documented by: <Rosie Murrell MD, FACOG - Last Filed: 10/06/20 08:10> Co-Signing Physician Notes Resident Physician Supervision Note: I interviewed and examined the patient. Discussed with Dr. Siddiqi and agree with findings and plan as documented in the note. Any exceptions or clarifications are listed here: Doing well. Repeat labs yesterday were stable. Plan d/c with labetolol. f/u in the office on Sunday for BP check. s/s of pet were reviewed. Documented By: Rosie Murrell MD, FACOG Resident Activity Tracking <Sally Siddiqi DO - Last Filed: 10/06/20 07:10> Resident Involvement: Resident Care Provided Care Provided: OB Delivery
[2020-10-06] MEDS: DOCUSATE SODIUM 100 MG CAP PO SCH (08:19)
[2020-10-06] MEDS: PRENATAL VITAMIN 1 TAB PO SCH (08:19)
[2020-10-06] MEDS: busPIRone 7.5 MG TAB PO SCH (08:19)
[2020-10-06] MEDS: LABETALOL HCL 200 MG TAB PO SCH (08:20)
[2020-10-06] MEDS: DULoxetine HCL 60 MG CAP PO SCH (08:20)
--- NOTE | 2020-10-15 13:20 | Coding Query ---
CODING QUERY To promote full compliance with coding requirements relating to patient care, provider participation is requested in all cases of rock lather uncertainty. Please assist us with the question(s) below: Coding Question(s): The Anesthesia Consultation documents under Medical History, mild preeclampsia. It is not clear if this was during the current of this admission or from previous or both. Please specify below in your clinical opinion, regarding mild preeclampsia. ( ) mild preeclampsia of current during this admission ( ) history of mild preeclampsia from previous (X ) mild preeclampsia of current during this admission and history of it as well in previous ( ) Other: Please Specify Physician's Response(s): Thank you Clare Quintero Principal Diagnosis: "that condition established after study, to be chiefly responsible for occasioning the admission of the patient to the hospital for care." Co-Existing Principal Diagnosis: "when two or more diagnoses equally meet the criteria for principal diagnosis as determined by the circumstances of admission, diagnostic work up, and/or therapy provided, and the Alphabetic Index, Tabular List, or another coding guideline does not provide sequencing direction, any one of the diagnoses may be sequenced first." "When the physician has documented what appears to be a current diagnosis in the body of the record, but has not included the diagnosis in the final diagnostic statement, the physician should be asked whether the diagnosis should be added." (Source [facility]oding [facility] 2 QTR90. p3-4) DRAGAN
== END 2020-10-06 11:45 | disposition home or self-care (01) | DRG 807 ==
LOC: OPB 15:25 → 4S1 15:27 → 4S2 20:25